=== PATIENT | female | born 1995 | race Caucasian/White ===

== ENCOUNTER 2017-01-08 11:12 | Inpatient (IN) | payer BC ==
[~2017-01-08] VITALS: Ht 154.9 cm; Wt 174.6 kg
--- NOTE | ~2017-01-08 | CN ---
PATIENT NAME:CEFERINO JOLLY MEDICAL RECORD: [id number] : [birth year] LOCATION:D[facility] ADMIT DATE: 01/08/17 ACCOUNT: [id number] CONSULTING PHYSICIAN: HELEN MOORE MD REFERRING PHYSICIAN: HARRY MCKEE MD DATE OF CONSULTATION: 01/09/2017 PULMONARY CONSULTATION CONSULT REQUESTING PHYSICIAN: Harry Mckee MD REASON FOR CONSULTATION: Pneumonia, shortness of breath. HISTORY OF PRESENT ILLNESS: Ms. Jolly is a 21-year-old female, who has a history of childhood asthma, who was admitted through the ER for worsening shortness of breath, cough is productive with greenish color sputum production. She also has wheezing. She has shortness of breath with mild exertion. According to the boyfriend, she also snoring very loudly, sometimes she quit breathing. Sometimes she is very sleepy at work place, on the computer. She never slept while driving. She has no a.m. headache. She is tired most of the time during the day. REVIEW OF SYSTEMS: Mainly in the history of present illness. PAST MEDICAL HISTORY: 1. Childhood asthma. 2. Morbid obesity. PAST SURGICAL HISTORY: Nonsignificant. ALLERGIES: There are no known drug allergies. PRESENT MEDICATIONS: [employer] was reviewed. PERSONAL AND SOCIAL HISTORY: The patient is a nonsmoker and nondrinker. FAMILY HISTORY: Noncontributory. PHYSICAL EXAMINATION: GENERAL: Now, the patient is morbidly obese. VITAL SIGNS: The blood pressure is 149/84, pulse is 111, respirations 22, temperature 97.5, SPO2 is 94% on 1.5 liter nasal cannula. HEENT: Conjunctivae pink, sclerae nonicteric. NECK: Supple, no JVD. CHEST: The chest excursion is minimal on both sides. There is wheeze on forceful expiration. HEART: Rhythm regular, normal sound, no murmur. ABDOMEN: Soft. Bowel sounds present. No hepatosplenomegaly. RECTAL: Deferred. EXTREMITIES: No cyanosis, no clubbing. There is no pedal edema. SKIN: Warm, normal turgor. CENTRAL NERVOUS SYSTEM: The patient is awake and alert. There is no obvious cranial nerve abnormality. The gait was not tested. IMAGING: CTA of the chest did not show any major pulmonary embolism, but there CONSULT REPORT [id number] JOLLY,CEFERINO is a scattered ground-glass opacities throughout both lungs. There are consolidative opacity in the left lower lobe. OTHER LABORATORY DATA: CBC: WBC 6.5, hemoglobin 9, hematocrit 33.5, the platelet count 334. Chemistry: Sodium 140, potassium 4.6, BUN is 14, creatinine 0.9, glucose 221. ABG: The pH is 7.43, pCO2 of 40.6, the pO2 is 58, and bicarbonate is 27.4. IMPRESSION: 1. Acute hypoxic respiratory failure secondary to multilobar pneumonia, most likely community-acquired pneumonia. 2. Acute exacerbation of asthma. 3 Morbid obesity. 4. Obstructive sleep apnea by history. RECOMMENDATION: 1. Continue Levaquin and Rocephin. 2. Methylprednisolone IV. 3. Albuterol/ipratropium nebulizer. 4. Brovana, budesonide nebulizer. 5. We will start her on Singulair 10 mg a day. Follow labs and chest x-ray in the morning. 6. The patient will need outpatient sleep study. Dr. Mckee, once again thanks for involving me in the care of Ms. Jolly. TRANSINT:[id number] Voice Confirmation ID: [id number] DOCUMENT ID: [id number] HELEN MOORE MD CC: HARRY MCKEE MD [id number] DICTATION DATE: 01/09/171809 DYER HELPER: 01/10/17 0009 ADM IN [facility] [address] [place] [address]
[2017-01-08 13:25] LABS: BASOPHILS 0.4 % (0-2); HEMATOCRIT 32.5 % (36.0-48.0); HEMOGLOBIN 8.8 g/dL (12-16); IMMATURE GRANULOCYTES 0.4 % (0-5); MCH 18.5 pg (26.0-34.0); MCHC 27.1 g/dL (31.0-37.0); MCV 68.4 fL (80.0-100.0); MEAN PLATELET VOLUME 9.2 fL (7.4-10.4); MONOCYTES 22.5 % (2-11); NEUTROPHILS 57.7 % (40-80); PLATELET COUNT 304 10x3/uL (130-400); RBC 4.75 10x6/uL (4.00-5.40); RDW 19.3 % (11.5-14.5); WBC 5.1 10x3/uL (4.8-10.8)
[2017-01-08 16:40] LABS: ALBUMIN 3.4 g/dL (3.4-5.0); ALKALINE PHOSPHATASE 48 U/L (46-116); ALT (SGPT) 26 U/L (10-68); BILIRUBIN - TOTAL 0.35 mg/dL (0.2-1.3); CALC OSMOLALITY 276 mosm/kg (275-300); CALCIUM 8.7 mg/dL (8.5-10.1); CARBON DIOXIDE 32.3 mmol/L (21.0-32.0); CHLORIDE - SERUM 103 mmol/L (98-107); CREATININE - SERUM 0.7 mg/dL (0.6-1.3); GLUCOSE 94 mg/dL (74-106); POTASSIUM - SERUM 4.5 mmol/L (3.5-5.1); PROTEIN - SERUM 7.4 g/dL (6.4-8.2); SODIUM 140 mmol/L (136-145); UREA NITROGEN 8 mg/dL (7-18); eGFR NON AFRICAN AMERICAN > 90 mL/min (90-120)
[2017-01-08 16:48] LABS: PRO BNP 15 pg/mL (0-125)
[2017-01-08 23:23] VITALS: BP 159/82; BMI 72.9
[2017-01-08 23:33] VITALS: BP 159/82
[2017-01-09 04:00] VITALS: BP 141/109
--- NOTE | 2017-01-09 07:20 | NUR ---
PATIENT RESTING IN THE BED. PATIENT AWAKENS EASILY TO VERBAL STIMULI. FRIEND AT PATIENT'S BEDSIDE. PATIENT DENIES ANY NEEDS AT PRESENT TIME. CALL LIGHT IN PATIENT'S REACH. WILL MONITOR PATIENT.
[2017-01-09 09:45] VITALS: BP 140/88
--- NOTE | 2017-01-09 09:49 | NUR ---
PATIENT RESTING IN THE BED. PATIENT'S MOTHER AND SISTER AT HER BEDSIDE. PATIENT COMPLAINS OF A SHARP PAIN IN HER HEAD. PATIENT RATES PAIN LEVEL A "6" ON A 0-10 SCALE. PRN HYDROCODONE GIVEN TO PATIENT FOR PAIN. PATIENT TOLERATED WELL. ASSESSMENT COMPLETED. SEE FLOWSHEET FOR ANY DETAILS. PATIENT DENIES ANY FURTHER NEEDS AT PRESENT TIME. CALL LIGHT IN PATIENT'S REACH. WILL MONITOR.
--- NOTE | 2017-01-09 10:48 | NUR ---
PATIENT VERY ANXIOUS AND REQUESTS "SOMETHING FOR ANXIETY". PRN ATIVAN GIVEN TO PATIENT. PATIENT TOLERATED WELL. DENIES ANY FURTHER NEEDS. CALL LIGHT IN REACH. WILL MONITOR.
--- NOTE | 2017-01-09 11:49 | NUR ---
PATIENT RESTING IN THE BED. FAMILY AT THE BEDSIDE. SCHEDULED MEDICATION GIVEN TO PATIENT. PATIENT DENIES ANY NEEDS AT PRESENT TIME. CALL LIGHT IN PATIENT'S REACH. WILL MONITOR PATIENT.
[2017-01-09 13:40] VITALS: BP 149/86
[2017-01-09 13:40] LABS: BASOPHILS 0.2 % (0-2); EOSINOPHILS 0 % (0-7); HEMATOCRIT 33.5 % (36.0-48.0); IMMATURE GRANULOCYTES 0.9 % (0-5); LYMPHOCYTES 12.3 % (15-50); MCHC 26.9 g/dL (31.0-37.0); MCV 68.9 fL (80.0-100.0); MEAN PLATELET VOLUME 9.2 fL (7.4-10.4); MONOCYTES 12.6 % (2-11); PLATELET COUNT 334 10x3/uL (130-400); RBC 4.86 10x6/uL (4.00-5.40); RDW 19.2 % (11.5-14.5)
[2017-01-09 13:41] LABS: MCH 18.5 pg (26.0-34.0); WBC 6.5 10x3/uL (4.8-10.8)
[2017-01-09 14:05] LABS: ALBUMIN 3.4 g/dL (3.4-5.0); ALKALINE PHOSPHATASE 52 U/L (46-116); ALT (SGPT) 26 U/L (10-68); BILIRUBIN - TOTAL 0.32 mg/dL (0.2-1.3); CARBON DIOXIDE 29.9 mmol/L (21.0-32.0); CHLORIDE - SERUM 101 mmol/L (98-107); POTASSIUM - SERUM 4.6 mmol/L (3.5-5.1); PROTEIN - SERUM 7.1 g/dL (6.4-8.2); SODIUM 140 mmol/L (136-145); THYROID STIMULATING HORMONE 1.34 uIU/mL (0.36-3.74)
[2017-01-09 14:06] LABS: CALC OSMOLALITY 286 mosm/kg (275-300); CREATININE - SERUM 0.9 mg/dL (0.6-1.3); GLUCOSE 221 mg/dL (74-106); UREA NITROGEN 14 mg/dL (7-18); eGFR NON AFRICAN AMERICAN 82 mL/min (90-120)
[2017-01-09 14:13] LABS: HEMOGLOBIN A1C 6.1 % (4.8-6.0)
[2017-01-09 16:55] VITALS: BP 149/84
--- NOTE | 2017-01-09 18:28 | NUR ---
URINE TEST COLLECTED AND SENT TO THE LAB.
[2017-01-09 18:47] LABS: HCG URINE NEGATIVE (NEGATIVE)
[2017-01-09 20:00] VITALS: BP 136/60
[2017-01-10] VITALS: BP 149/82
[2017-01-10 04:00] VITALS: BP 124/77
[2017-01-10 06:06] LABS: BASOPHILS 0.2 % (0-2); EOSINOPHILS 0 % (0-7); HEMATOCRIT 34.6 % (36.0-48.0); HEMOGLOBIN 9.1 g/dL (12-16); IMMATURE GRANULOCYTES 1.1 % (0-5); LYMPHOCYTES 13.2 % (15-50); MCHC 26.3 g/dL (31.0-37.0); MEAN PLATELET VOLUME 9.6 fL (7.4-10.4); NEUTROPHILS 75.5 % (40-80); PLATELET COUNT 381 10x3/uL (130-400); RBC 4.94 10x6/uL (4.00-5.40); RDW 19.4 % (11.5-14.5)
[2017-01-10 06:22] LABS: ALBUMIN 3.3 g/dL (3.4-5.0); ALKALINE PHOSPHATASE 48 U/L (46-116); ALT (SGPT) 24 U/L (10-68); CALC OSMOLALITY 284 mosm/kg (275-300); CALCIUM 8.9 mg/dL (8.5-10.1); CARBON DIOXIDE 30.7 mmol/L (21.0-32.0); CHLORIDE - SERUM 102 mmol/L (98-107); CREATININE - SERUM 0.7 mg/dL (0.6-1.3); GLUCOSE 209 mg/dL (74-106); POTASSIUM - SERUM 4.7 mmol/L (3.5-5.1); PROTEIN - SERUM 7.3 g/dL (6.4-8.2); SODIUM 140 mmol/L (136-145); UREA NITROGEN 12 mg/dL (7-18); eGFR NON AFRICAN AMERICAN > 90 mL/min (90-120)
[2017-01-10 06:28] LABS: MCH 18.4 pg (26.0-34.0); WBC 8.9 10x3/uL (4.8-10.8)
--- NOTE | 2017-01-10 08:30 | NUR ---
PT AOX4 RESP EVEN AND NONLABORED PT DENIES NEEDS AT THIS TIME SRX2 BED AT LOWEST SETTING CALL LIGHT WITHIN REACH IV TO LEFT FOREARM PATENT AND INTACT WILL CONTINUE TO MONITOR
[2017-01-10 08:31] VITALS: BP 157/101
[2017-01-10 11:39] VITALS: BP 171/80
[2017-01-10 15:10] VITALS: Ht 154.9 cm; Wt 174.6 kg
--- NOTE | 2017-01-10 15:11 | NUR ---
IV ACCESS-22 GAUGE INSERTED IN RIGHT HAND FOR ACCESS. BRUNO NELSON RN
[2017-01-10 15:25] VITALS: BP 142/74
--- NOTE | 2017-01-10 17:19 | NUR ---
Patient Name: CEFERINO BERMAN Admission Status: ER Accout number: [id number] Admission Date: 01-08-2017 : 1995 Admission Diagnosis:ACUTE RESPIRATORY FAILURE WITH HYPOXIA Attending: SAEED Current LOS: 2 Anticipated DC Date: 01-12-2017 Planned Disposition: Home Primary Insurance: [employer] OUT OF STATE Discharge Planning Comments: CM MET WITH PATIENT REGARDING D/C NEEDS AND PLANS. PATIENT STATED SHE LIVES WITH HER SPOUSE (ZACH) AND HE WILL DRIVE HER HOME AT DISCHARGE OR A FRIEND WILL. PATIENT HAS 2 STEPS W/RAILS TO ENTER HOME AND NO STAIRS INSIDE. PATIENT IS INDEPENDENT WITH HER CARE AND HAS NO DME AT HOME. PATIENT HAS NO PCP AND SHE USES [facility] [address]. PATIENT HAS NOT HAD HOME HEALTH AND DOES NOT THINK SHE WILL NEED IT AT DISCHARGE. CM WILL CONTINUE TO FOLLOW PATIENT WITH D/C NEEDS AND PLANS. PCP NONE [facility] [address]- [phone] SASHA (FATHER IN LAW) [phone] Hand Reamer: Fransisca Clarke Is the patient Alert and Oriented? Yes 0 * How many steps to enter\exit or inside your home? 2 RAILS 0 * PCP NONE 0 * Pharmacy [facility] * Preadmission Environment Home with Family 0 * ADLs Independent 0 * Equipment None 0 * List name and contact numbers for known caregivers / representatives who currently or will assist patient after discharge: SASHA (FATHER IN LAW) [phone] 0 * Community resources currently utilized None 0 * Additional services required to return to the preadmission environment? Yes 0 * Can the patient safely return to the preadmission environment? Yes 0 * Has this patient been hospitalized within the prior 30 days at any hospital? No 0 Grand Total: 0
--- NOTE | 2017-01-10 19:00 | NUR ---
PATIENT IN BED WATCHING TV. HOB 60 DEGREES. AAOX4. RR EVEN AND UNLABORED. O2 @ 3L VIA NC. 0 S/S OF DISTRESS. DENIES PAIN AT THIS TIME. IV TO RIGHT HAND S/L WITH NO REDNESS OR SWELLING. SCD'S IN ROOM BUT OFF. SRX2. BED LOW. CALL LIGHT WITHIN REACH.
[2017-01-10 20:26] VITALS: BP 150/80
--- NOTE | 2017-01-10 21:30 | NUR ---
ASSESSMENT COMPLETE. NIGHTTIME MEDS GIVEN. 6 UNITS HUMALOG GIVEN FOR BS OF 255. ATIVAN GIVEN FOR ANXIETY. NO OTHER NEEDS AT THIS TIME.
[2017-01-11] VITALS (7 sets, daily range): BP systolic 132–147; BP diastolic 64–90
[2017-01-11 05:55] LABS: BASOPHILS 0.1 % (0-2); EOSINOPHILS 0 % (0-7); HEMOGLOBIN 8.8 g/dL (12-16); IMMATURE GRANULOCYTES 0.6 % (0-5); LYMPHOCYTES 12.6 % (15-50); MCHC 26.7 g/dL (31.0-37.0); MCV 69.2 fL (80.0-100.0); MEAN PLATELET VOLUME 8.9 fL (7.4-10.4); MONOCYTES 5.7 % (2-11); PLATELET COUNT 340 10x3/uL (130-400); RBC 4.77 10x6/uL (4.00-5.40); RDW 19.1 % (11.5-14.5); WBC 9.3 10x3/uL (4.8-10.8)
[2017-01-11 06:29] LABS: ALBUMIN 3.3 g/dL (3.4-5.0); ALKALINE PHOSPHATASE 44 U/L (46-116); ALT (SGPT) 21 U/L (10-68); BILIRUBIN - TOTAL 0.29 mg/dL (0.2-1.3); CALC OSMOLALITY 283 mosm/kg (275-300); CALCIUM 8.6 mg/dL (8.5-10.1); CHLORIDE - SERUM 104 mmol/L (98-107); CREATININE - SERUM 0.7 mg/dL (0.6-1.3); GLUCOSE 150 mg/dL (74-106); POTASSIUM - SERUM 4.8 mmol/L (3.5-5.1); PROTEIN - SERUM 7.1 g/dL (6.4-8.2); SODIUM 141 mmol/L (136-145); UREA NITROGEN 13 mg/dL (7-18); eGFR NON AFRICAN AMERICAN > 90 mL/min (90-120)
[2017-01-11 06:42] LABS: MCH 18.4 pg (26.0-34.0)
--- NOTE | 2017-01-11 08:29 | NUR ---
ALSLEEP, EASILY AROUSED, BREATHING TREATMENT ON, BREATHING UNLABORED AND EVEN, CALL LIGHT IN REACH, BED LOWEST POSITION, WILL CONTINUE TO MONITOR
--- NOTE | 2017-01-11 12:01 | NUR ---
SITTING UP IN CHAIR AT BEDSIDE. DENIES NEEDS. NO C/O AT THIS TIME.
--- NOTE | 2017-01-11 19:00 | NUR ---
PATIENT IN BED WATCHING TV. HOB 65 DEGREES. AAOX4. RR EVEN AND UNLABORED. O2 OFF @ THIS TIME. 0 S/S OF DISTRESS. DENIES PAIN AT THIS TIME. IV TO RIGHT HAND S/L WITH NO REDNESS OR SWELLING. SRX2. BED LOW. CALL LIGHT WITHIN REACH.
--- NOTE | 2017-01-11 22:30 | NUR ---
NIGHTTIME MEDS GIVEN. 10 UNITS HUMALOG GIVEN FOR BS OF 285. ATIVAN GIVEN FOR ANXIETY AND NORCO GIVEN FOR PAIN OF A 6/10 DUE TO A HEADACHE.
--- NOTE | 2017-01-12 01:00 | NUR ---
PATIENT AMBULATING IN HALLWAY WITH O2 TANK.
[2017-01-12 04:00] VITALS: BP 139/73
--- NOTE | 2017-01-12 04:35 | NUR ---
PATIENT SLEEPING WITH NO DISTRESS NOTED.
[2017-01-12 05:52] LABS: BASOPHILS 0 % (0-2); EOSINOPHILS 0 % (0-7); HEMATOCRIT 32.1 % (36.0-48.0); HEMOGLOBIN 8.7 g/dL (12-16); IMMATURE GRANULOCYTES 0.4 % (0-5); LYMPHOCYTES 12.4 % (15-50); MCHC 27.1 g/dL (31.0-37.0); MCV 68.6 fL (80.0-100.0); MEAN PLATELET VOLUME 9.4 fL (7.4-10.4); MONOCYTES 11.2 % (2-11); PLATELET COUNT 351 10x3/uL (130-400); RBC 4.68 10x6/uL (4.00-5.40)
[2017-01-12 06:06] LABS: MCH 18.6 pg (26.0-34.0)
[2017-01-12 06:11] LABS: ALBUMIN 3.2 g/dL (3.4-5.0); ALKALINE PHOSPHATASE 46 U/L (46-116); ALT (SGPT) 20 U/L (10-68); CALC OSMOLALITY 283 mosm/kg (275-300); CALCIUM 8.7 mg/dL (8.5-10.1); CARBON DIOXIDE 29.3 mmol/L (21.0-32.0); CHLORIDE - SERUM 103 mmol/L (98-107); CREATININE - SERUM 0.7 mg/dL (0.6-1.3); GLUCOSE 151 mg/dL (74-106); POTASSIUM - SERUM 4.4 mmol/L (3.5-5.1); PROTEIN - SERUM 6.8 g/dL (6.4-8.2); SODIUM 140 mmol/L (136-145); eGFR NON AFRICAN AMERICAN > 90 mL/min (90-120)
[2017-01-12 06:12] LABS: UREA NITROGEN 17 mg/dL (7-18)
--- NOTE | 2017-01-12 07:35 | NUR ---
RESTING, EASILY AROUSED, DENIES NEEDS, CALL LIGHT IN REACH, WILL CONTINUE MONTIOR
[2017-01-12 08:01] VITALS: BP 124/69
--- NOTE | 2017-01-12 08:06 | EC ---
PATIENT:CEFERINO BERMAN DATE OF SERVICE: 01/08/17 SEX: F MEDICAL RECORD: [id number] DATE OF : [birth year] LOCATION:D.[facility] AGE OF PATIENT: 21 ADMISSION DATE: 01/08/17 REFERRING PHYSICIAN: INTERPRETING PHYSICIAN: TJ HESTER MD ECHOCARDIOGRAM REPORT ECHO CHARGES 4 ECHO COMPLETE CLINICAL DIAGNOSIS: CHF ECHOCARDIOGRAPHIC MEASUREMENTS (adult normal given) AC root (d.<3.7cm) 3.0 LV Septum d (<1.2 cm> 1.3 Valve Excursion 2.3 LV Septum (systole) 1.8 Left Atria (s.<4.0cm> 4.0 LVPW d(<1.2cm) 1.3 RV (d.<2.3cm) 3.0 LVPW (sytole) 1.9 LV diastole(<5.6CM) 5.0 MV E-F(>70mm/sec) LV systole 3.0 LVOT Diameter 2.1 MV exc.(>10mm) Est.ejection fraction (50-75%) Pericardial Effusion N DOPPLER: LVIT A 107 E 120 LA RVSP LVOT 87.0 AOP1/2T Asc. Ao 187 RVOT 110 RA PA 148 AV Gradient Peak 14.0 AV Mean 6.8 AV Area 2.3 MV Gradient Peak 13.2 MV Mean 6.2 MV Area COMMENTS: Manager Product Management: Eleazar PEREZOE Research Scholar:1 Dr. Hester TAPE# PACS DATE OF SERVICE: 01/10/2017 Echocardiogram FINDINGS: 1. Left ventricular chamber size is within normal limits. Left ventricular systolic function is normal. Overall ejection fraction estimated at 55%. 2. Left atrium, right atrium, and right ventricular chamber sizes are within normal limits. 3. Valvular structures have normal structure and motion. ECHOCARDIOGRAM REPORT [id number] CEFERINO BERMAN 4. Doppler interrogation reveals no significant valvular insufficiency or stenosis. 5. No evidence of pericardial effusion or left ventricular thrombus. TRANSINT:[id number] Voice Confirmation ID: [id number] DOCUMENT ID: [id number] TJ HESTER MD at 0806 CC: [id number] DICTATION DATE: 01/11/17 1126 DIRECTOR PHARMACEUTICAL: 01/11/17 1655 ADM IN [address] [place] [address]
[2017-01-12 11:41] VITALS: BP 146/74
--- NOTE | 2017-01-12 14:20 | NUR ---
NUTRITION MONITORING & EVAL RECEIVED CONSULT FOR WT LOSS EDUCATION. BOTH SPOUSE AND PT PRESENT IN ROOM. PT REPORTS DRINKING AT LEAST TWO REG SODAS PER DAY PLUS "OUR FRIDGE IS ALWAYS FULL OF FRUIT JUICE." SPOUSE AND PT HAVE DIFFERENT WORKING HOURS MAKING IT DIFFICULT TO ENJOY REG MEALS TOGETHER. BOTH EAT FAST FOOD OFTEN. PROVIDED INFORMATION ON SERVING SIZES, BUILDING A HEALTHY PLATE, TIPS FOR REDUCING CALORIES. ENCOURAGED PT TO INCREASE PHYSICAL ACTIVITY GRADUALLY. ENCOURAGED PT TO SET ATTAINABLE GOALS. CHANGE TO DIET SODAS, EAT FRESH FRUIT IN PLACE OF JUICES. ALSO PROVIDED ADA PLATE METHOD WT LOSS TOOL. PT AND SPOUSE ATTENTIVE AND EXPRESSED STRONG DESIRE FOR LIFESTYLE CHANGE TO HELP PT AVOID DIABETES IN THE FUTURE. RD FOLLOWING
--- NOTE | 2017-01-12 14:22 | NUR ---
PT AOX4 RESP EVEN AND NONLABORED PT HERE FOR COPD EXABERATION WITH O2 TREATMENT AND IV MEDICATIONS TO LEFT HAND IV PATENT AND INTACT. PT DENIES NEEDS AT THIS TIME SRX2 BED AT LOWEST SETTING CALL LIGHT WITHIN REACH WILL CONTINUE TO MONITOR
--- NOTE | 2017-01-12 16:30 | NUR ---
WALKED PT AROUND UNIT WITHOUT O2 TO TEST SATS, STAYED IN THE LOW 90S TILL WE GOT BACK AT HER ROOM AND DROPPED IN THE UPPER 80S, JUST SLIGHT SHORTNESS OF BREATH NO OTHER COMPLAINTS
[2017-01-12 16:52] VITALS: BP 159/83
--- NOTE | 2017-01-12 19:51 | NUR ---
BROUGHT PATIENT WATER PER HER REQUEST. PATIENT IS RESTING IN BED AND DENIES OTHER NEEDS AT THIS TIME. BED IN LOWEST POSITION AND CALL LIGHT WITHIN REACH. ENCOURAGED PATIENT TO CALL IF SHE HAS FURTHER NEEDS.
[2017-01-12 20:00] VITALS: BP 125/62
[2017-01-13 06:18] LABS: BASOPHILS 0.1 % (0-2); EOSINOPHILS 0 % (0-7); HEMATOCRIT 33.9 % (36.0-48.0); LYMPHOCYTES 14.7 % (15-50); MCH 18.2 pg (26.0-34.0); MCHC 26.5 g/dL (31.0-37.0); MCV 68.5 fL (80.0-100.0); MONOCYTES 8.7 % (2-11); NEUTROPHILS 75.5 % (40-80); PLATELET COUNT 370 10x3/uL (130-400); RBC 4.95 10x6/uL (4.00-5.40); RDW 18.7 % (11.5-14.5); WBC 9.6 10x3/uL (4.8-10.8)
[2017-01-13 06:43] LABS: ALBUMIN 3.2 g/dL (3.4-5.0); ALKALINE PHOSPHATASE 53 U/L (46-116); ALT (SGPT) 24 U/L (10-68); BILIRUBIN - TOTAL 0.27 mg/dL (0.2-1.3); CALC OSMOLALITY 286 mosm/kg (275-300); CALCIUM 8.7 mg/dL (8.5-10.1); CARBON DIOXIDE 32.5 mmol/L (21.0-32.0); CHLORIDE - SERUM 104 mmol/L (98-107); CREATININE - SERUM 0.8 mg/dL (0.6-1.3); GLUCOSE 168 mg/dL (74-106); POTASSIUM - SERUM 4.6 mmol/L (3.5-5.1); PROTEIN - SERUM 6.8 g/dL (6.4-8.2); SODIUM 141 mmol/L (136-145); UREA NITROGEN 17 mg/dL (7-18); eGFR NON AFRICAN AMERICAN > 90 mL/min (90-120)
--- NOTE | 2017-01-13 07:00 | NUR ---
PT WAS RECEIVED AT THE BEGINNING OF THIS SHIFT IN BED WITH EYES CLOSED. 02 PER NC GOING AT 3L/MIN. RT. HAND HAS SALINE LOCK. VITAL SIGNS; TEMP. 98.5, PULSE 88, RESP. 19, B/P 134/77, 02SAT. 93%. PT DID DENIE ANY PAIN OR DISCOMFORT. NO SIGNS OF ANY DISCOMFORT OR DISTRESS FOUND.
[2017-01-13 08:21] VITALS: BP 134/77
[2017-01-13 11:35] VITALS: BP 172/83
--- NOTE | 2017-01-13 12:51 | NUR ---
PT IS HAVING AN UNEVENTFUL DAY. NO VOICED COMPLAINTS OR SIGNS OF DISCOMFORT OR DISTRESS. PT. GETS UP AD DILEEP TO THE BATHROOM.
[2017-01-13] MEDS ORDERED: LEVAQUIN750 MG PO (12:57)
[2017-01-13] MEDS ORDERED: VENTOLIN HFA18 GM INH (12:58)
[2017-01-13] MEDS ORDERED: FLORAJEN3 CAPS460 MG PO (12:58)
[2017-01-13] MEDS ORDERED: PREDNISONE10 MG PO (12:58)
[2017-01-13] MEDS ORDERED: SINGULAIR10 MG PO (12:59)
[2017-01-13] MEDS ORDERED: OMNICEF300 MG PO (12:59)
--- NOTE | 2017-01-13 16:41 | NUR ---
PT IS DISCHARGING FROM THE UNIT VIA WHEELCHAIR AND FAMILY MEMBER. STABLE CONDITION OBSERVED UPON LEAVING. PT. LEFT WITH DISCHARGE PAPERWORK.
--- NOTE | 2017-01-14 08:00 | NUR ---
LATE ENTRY: PATIENT D/C YESTERDAY - NO NEEDS DRIVING HER HOME.
== END 2017-01-13 16:55 | disposition home or self-care (01) | DRG 193 ==
LOC: D.ER 11:12 → D.MS 21:34
PROVIDERS: Family Medicine; Physician Assistant; ADMIT Family Medicine
DX: J18.9 Pneumonia, unspecified organism (principal); J96.01 Acute respiratory failure with hypoxia; Z68.45 Body mass index [BMI] 70 or greater, adult; J45.901 Unspecified asthma with (acute) exacerbation; J20.9 Acute bronchitis, unspecified; R09.02 Hypoxemia; G47.33 Obstructive sleep apnea (adult) (pediatric); E66.01 Morbid (severe) obesity due to excess calories; N93.8 Other specified abnormal uterine and vaginal bleeding

== ENCOUNTER → 2017-01-31 19:11 | Outpatient (CLI) | payer BC ==
[2017-01-10 15:10] VITALS: BMI 72.7
[~2017-01-31 19:11] MED LIST: FLORAJEN3 CAPS460 MG PO; LEVAQUIN750 MG PO; OMNICEF300 MG PO; PREDNISONE10 MG PO; SINGULAIR10 MG PO; VENTOLIN HFA18 GM INH
== END | disposition home or self-care (01) ==
LOC: D.SLEEP 19:11
DX: G47.33 Obstructive sleep apnea (adult) (pediatric) (principal)

== ENCOUNTER 2019-06-06 08:24 | Emergency (ER) | payer BC ==
[~2019-06-06] VITALS: Ht 154.9 cm; Wt 148.8 kg
[2019-06-06] MEDS ORDERED: VISTARIL50 MG PO (08:32)
[2019-06-06 08:52] LABS: HCG URINE NEGATIVE (NEGATIVE)
[2019-06-06 09:00] LABS: HEMATOCRIT 36.3 % (36.0-48.0); HEMOGLOBIN 10.3 g/dL (12-16); LYMPHOCYTES 19.8 % (15-50); MCHC 28.4 g/dL (31.0-37.0); MCV 67.9 fL (80.0-100.0); NEUTROPHILS 70.7 % (40-80); PLATELET COUNT 433 10x3/uL (130-400); RBC 5.35 10x6/uL (4.00-5.40); RDW 19.8 % (11.5-14.5); WBC 4.7 10x3/uL (4.8-10.8)
[2019-06-06 09:04] LABS: MCH 19.3 pg (26.0-34.0)
[2019-06-06 09:10] LABS: APPEARANCE SL CLDY (CLEAR); COLOR DK YELLOW (YELLOW); GLUCOSE NEGATIVE (NEGATIVE); KETONE LARGE mg/dL (NEGATIVE); PROTEIN 1+ mg/dL (NEGATIVE); SPECIFIC GRAVITY 1.025 (1.005-1.020)
[2019-06-06 09:11] LABS: BILIRUBIN NEGATIVE (NEGATIVE)
[2019-06-06 09:12] LABS: EPITHELIAL CELLS 0-5 /hpf (0-5); MUCUS <1+ /lpf (NONE SEEN)
[2019-06-06 09:13] LABS: CALC OSMOLALITY 283 mosm/kg (275-300); CALCIUM 9.1 mg/dL (8.5-10.1); CARBON DIOXIDE 23.6 mmol/L (21.0-32.0); CHLORIDE - SERUM 104 mmol/L (98-107); CREATININE - SERUM 0.9 mg/dL (0.6-1.3); POTASSIUM - SERUM 4.2 mmol/L (3.5-5.1); SODIUM 141 mmol/L (136-145); UREA NITROGEN 17 mg/dL (7-18); eGFR NON AFRICAN AMERICAN 81 mL/min (90-120)
[2019-06-06 09:15] LABS: GLUCOSE 116 mg/dL (74-106)
[2019-06-06] MEDS ORDERED: SULFAMETHOXAZOL1 TA2 PO (10:27)
[2019-06-06] MEDS ORDERED: HYDROCODON-ACE1 EAC7 PO (10:27)
== END 2019-06-06 10:40 | disposition home or self-care (01) ==
LOC: D.ER 08:24
PROVIDERS: Emergency Medicine
DX: N39.0 Urinary tract infection, site not specified (principal)

== ENCOUNTER 2019-08-20 10:05 | Emergency (ER) | payer BC ==
[~2019-08-20] VITALS: Ht 157.5 cm; Wt 140.9 kg
[~2019-08-20 10:05] MED LIST changes: +HYDROCODON-ACE1 EAC7 PO; +SULFAMETHOXAZOL1 TA2 PO; +VISTARIL50 MG PO
[2019-08-20 10:10] VITALS: Ht 157.5 cm; Wt 140.9 kg
[2019-08-20] MEDS ORDERED: BIRTH CONTROL PILL (10:12)
[2019-08-20] MEDS ORDERED: AMOXICILLIN500 M1 PO (10:56)
[2019-08-20 11:38] VITALS: BP 122/77
[2019-08-20] MEDS ORDERED: DIFLUCAN150 MG PO (11:43)
== END 2019-08-20 11:38 | disposition home or self-care (01) ==
LOC: D.ER 10:05
DX: J02.0 Streptococcal pharyngitis (principal)